=== PATIENT | female | born 1980 | race Caucasian/White ===

== ENCOUNTER 2017-04-01 12:24 | Day surgery (SDC) | payer OTHER ==
[~2017-04-01] VITALS: Ht 162.6 cm; Wt 119.4 kg
[2017-04-01] VITALS (12 sets, daily range): BP systolic 122–150; BP diastolic 74–95; PULSE 72–82; RESP 15–24; Ht 162.6 cm; Wt 119.4 kg
[~2017-04-01 12:24] MED LIST: CEFAZOLIN 2 GM/50 ML (PMX) 50 ML IVPB SCH; PRENAT PO; SOD CHLORIDE 0.9% 1,000 ML IV SCH; SUCCINYLCHOLINE CHLORIDE 100 MG/5 ML SYG IV ONE
[2017-04-01] MEDS ORDERED: MIDAZOLAM 1 MG/ML 2 ML INJ ONE (13:49)
[2017-04-01] MEDS ORDERED: GLYCOPYRROLATE 0.4 MG INJ ONE (13:49)
[2017-04-01] MEDS ORDERED: ONDANSETRON 4 MG INJ ONE (13:49)
[2017-04-01] MEDS ORDERED: PROPOFOL 20 ML ONE (13:49)
[2017-04-01] MEDS ORDERED: CEFAZOLIN 1 GM INJ ONE (13:49)
[2017-04-01] MEDS ORDERED: FENTAnyl 50 MCG/ML VIAL ONE ×3 (13:49→15:44)
[2017-04-01] MEDS ORDERED: NEOSTIGMINE 3 MG/3 ML SYRINGE ONE (13:49)
[2017-04-01] MEDS ORDERED: ROCURONIUM 50 MG INJ ONE (13:49)
[2017-04-01] MEDS ORDERED: DEXAMETHASONE 4 MG/ML 1 ML INJ ONE (13:50)
[2017-04-01] MEDS ORDERED: EPHEDrine SULFATE 50 MG/5 ML SYG IV PRN (15:00)
[2017-04-01] MEDS ORDERED: MEPERIDINE 25 MG INJ IV PRN (15:00)
[2017-04-01] MEDS ORDERED: OXYCODONE/ACETAMINOPHEN (5/325) TAB PO PRN ×2 (15:00)
[2017-04-01] MEDS ORDERED: ALBUTEROL 0.083% (NEB) 2.5 MG/3 ML AMP HHN PRN (15:00)
[2017-04-01] MEDS ORDERED: FENTAnyl 50 MCG/ML VIAL IV PRN ×3 (15:00)
[2017-04-01] MEDS ORDERED: hydrALAzine 20 MG INJ IV PRN (15:00)
[2017-04-01] MEDS ORDERED: LABETALOL HCL 20MG INJ IV PRN (15:00)
[2017-04-01] MEDS ORDERED: ONDANSETRON 4 MG INJ IV PRN (15:00)
[2017-04-01] MEDS ORDERED: MIDAZOLAM 1 MG/ML 2 ML INJ IV PRN (15:00)
[2017-04-01] MEDS ORDERED: IPRATROPIUM (NEB) 0.5 MG/2.5 ML AMP HHN PRN (15:00)
[2017-04-01] MEDS ORDERED: DIPHENHYDRAMINE 50 MG INJ IV PRN (15:00)
[2017-04-01] MEDS ORDERED: HYDROmorphONE (0.2 MG/ML) 10ML SYG IV PRN ×3 (15:00)
[2017-04-01] MEDS ORDERED: TRIMETHOBENZAMIDE 100 MG/ML VIAL IM PRN (15:00)
[2017-04-01] MEDS: BUPIVACAINE 0.25% (MPF) 30 ML INJ ONE ×2 (15:10→15:35)
[2017-04-01] MEDS ORDERED: SUGAMMADEX SODIUM 200 MG/2 ML VIAL IV ONE (15:34)
--- NOTE | 2017-04-01 15:41 | OPR ---
Date/Time of Note Date/Time of Note DATE: 04/01/17 TIME: 15:38 Operative Report Procedure Date: Apr 01, 2017 Preoperative Diagnosis symptomatic gallstones Postoperative Diagnosis same Operation/Procedure Performed 1. laparoscopic cholecystectomy 2. therapeutic injection of subcutaneous local anesthesia Surgeon see signature line Certified Professional Midwife Rasheed Arias Anesthesia Type: general Estimated Blood Loss: 10 - 50 ml's Transfusion none Specimen gallbladder Grafts/Implants none Complications none Pt Condition Post Procedure: stable Indications This is a 36-year-old female with symptomatic gallstones. She requests surgical excision of her gallbladder. Risks alternatives benefits and percent were discussed with the patient. Patient expresses understanding consents to the operation. Procedure Description Patient is taken to the OR and prepped and draped in usual sterile fashion. Surgical timeout was performed. IV antibiotics were given. Due to prior midline incision right upper quadrant subcostal 5 mm transverse incision is made with a 15 blade. Using a 5 mm optical trocar optical entry is performed. Pneumoperitoneum established. An area that had no adhesions was identified and a right periumbilical 12 mm optical trocar was placed under direct visualization midepigastric 12 mm optical trochars placed under direct visualization right flank 5 mm optical trocar was placed under direct visualization upon initial inspection there is some adhesions to the gallbladder which were taken down bluntly. The gallbladder was grasped in the lateral and our direction. This allowed mobilization and careful dissection of the cystic duct. The cystic duct and cystic artery are identified using blunt dissection. Due to thickened tissues 2 fires of 35 mm echelon vascular stapler were used to divide the cystic duct and cystic artery. The staple line was reinforced with clips. The gallbladder was taken off the gallbladder bed. The gallbladder was cauterized until hemostasis established. The gallbladder was retrieved using Endo Catch bag through the periumbilical port site. The port site was closed using a running 0 Vicryl. Skin was closed using skin gelacio after all ports removed. Therapeutic subcutaneous local anesthesia was injected throughout the incision site. Dry dressings were applied. Catrachito BUCHANAN Apr 01, 2017 15:41
[2017-04-01] MEDS ORDERED: HYDROCODONE/APAP (5/325) TAB PO ONE (16:00)
== END 2017-04-01 17:32 | disposition home or self-care (01) ==
LOC: SDS 12:24 → SUR 12:24
PROVIDERS: ATTEND Surgery
DX: K80.10 Calculus of gallbladder with chronic cholecystitis without obstruction (principal); E66.01 Morbid (severe) obesity due to excess calories; Z68.42 Body mass index [BMI] 45.0-49.9, adult
CPT/HCPCS: 47562; 84703; 88304; J0690; J1100; J2250; J2405; J3010; Z7512; Z7610; J2710